=== PATIENT | female | born 1975 | race Caucasian/White ===

== ENCOUNTER 2019-03-18 14:15 | Emergency (ER) | payer OTHER ==
[~2019-03-18] VITALS: Ht 160 cm; Wt 90.9 kg
[2019-03-18 14:16] VITALS: BP 147/88
[2019-03-18] MEDS ORDERED: ADV250INH (14:24)
[2019-03-18] MEDS ORDERED: RIZA10TA2 (14:24)
[2019-03-18] MEDS ORDERED: TOPI25TA10 (14:24)
--- NOTE | 2019-03-18 15:07 | REP ---
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 Technique: AP, lateral, bilateral oblique views left first digit . Findings: The osseous structures and joint spaces are intact and normal. There is no evidence for acute fracture or dislocation. Surrounding soft tissues are unremarkable. No subcutaneous emphysema or radiodense foreign body. Impression: Normal examination. No acute fracture or dislocation. Electronically Signed by Marcos Williamson MD 03/18/2019 02:50 P
== END 2019-03-18 15:12 | disposition home or self-care (01) ==
LOC: M ED 14:15
DX: M79.645 Pain in left finger(s) (principal); M10.9 Gout, unspecified; Z88.0 Allergy status to penicillin; Z88.1 Allergy status to other antibiotic agents; Z88.2 Allergy status to sulfonamides

== ENCOUNTER → 2019-08-12 | Outpatient (REF) | payer OTHER ==
[~2019-08-12] MED LIST: ADV250INH; RIZA10TA2; TOPI25TA10
== END ==
LOC: M LAB REF 10:44
PROVIDERS: ATTEND Physician Assistant
DX: J06.9 Acute upper respiratory infection, unspecified (principal)

== ENCOUNTER 2021-12-03 16:56 | Emergency (ER) | payer OTHER ==
[~2021-12-03] VITALS: Ht 160 cm; Wt 100.0 kg
[2021-12-03] MEDS ORDERED: UBRO50TA (17:06)
[2021-12-03 17:47] LABS: BASO % 0.2 % (0.0-1.0); HEMATOCRIT 39.6 % (36.0-47.0); HEMOGLOBIN 13.2 g/dl (12.0-15.5); LYMPH # 2.8 10^3/uL (1.5-5.0); LYMPH % 28.2 % (24.0-44.0); MEAN CORPUSCULAR HEMOGLOBIN 27.4 pg (27.0-33.0); MEAN CORPUSCULAR HGB CONC 33.3 g/dl (32.0-36.5); MEAN CORPUSCULAR VOLUME 82.2 fl (80.0-96.0); MONO # 0.5 10^3/uL (0.0-0.8); MONO % 5.3 % (2.0-8.0); NEUTROPHILS # 6.5 10^3/uL (1.5-8.5); PLATELET COUNT, AUTOMATED 268 10^3/uL (150-450); RED BLOOD COUNT 4.82 10^6/uL (4.00-5.40); WHITE BLOOD COUNT 9.9 10^3/uL (4.0-10.0)
[2021-12-03 18:16] LABS: ALBUMIN 3.9 GM/DL (3.2-5.2); ALT/SGPT 30 U/L (12-78); BILIRUBIN,DIRECT < 0.1 MG/DL (0.0-0.2); BILIRUBIN,TOTAL 0.2 MG/DL (0.2-1.0); BLOOD UREA NITROGEN 21 MG/DL (7-18); CALCIUM LEVEL 9.2 MG/DL (8.5-10.1); CARBON DIOXIDE LEVEL 27 MEQ/L (21-32); CHLORIDE LEVEL 109 MEQ/L (98-107); CREATININE FOR GFR 0.94 MG/DL (0.55-1.30); GLOMERULAR FILTRATION RATE > 60.0 (>58); GLUCOSE, FASTING 92 MG/DL (70-100); LIPASE 152 U/L (73-393); POTASSIUM SERUM 3.9 MEQ/L (3.5-5.1); SODIUM LEVEL 140 MEQ/L (136-145); TOTAL PROTEIN 7.7 GM/DL (6.4-8.2)
[2021-12-03 18:17] LABS: CK-MB VALUE MASS < 1.0 NG/ML (<3.6); CPK CREATINE PHOSPHOKINASE 133 U/L (26-192); MB/CK RELATIVE INDEX 0.75 (< OR =4)
[2021-12-03] MEDS ORDERED: ASPIRIN 81 MG CHEW TABLET PO ONE (18:50)
[2021-12-03 18:53] LABS: INR 0.97; PROTHROMBIN TIME 13.3 SECONDS (12.7-14.5)
[2021-12-03 21:20] LABS: CK-MB VALUE MASS 1.1 NG/ML (<3.6); MB/CK RELATIVE INDEX 0.91 (< OR =4)
[2021-12-03] MEDS ORDERED: KETOROLAC 30 MG/ML 1ML VIAL IV ONE (22:10)
[2021-12-03 22:16] VITALS: BP 135/78
== END 2021-12-03 23:46 | disposition home or self-care (01) ==
LOC: M ED 16:56
DX: R07.89 Other chest pain (principal); Z88.0 Allergy status to penicillin; Z88.1 Allergy status to other antibiotic agents; Z88.2 Allergy status to sulfonamides
CPT/HCPCS: 71045; 71275; 80048; 80076; 82550; 82553; 83690; 84484; 85025; 85610; 93005; 93041; 94760; 96374; 99285; J1885

== ENCOUNTER → 2022-01-10 | Outpatient (CLI) | payer OTHER ==
[~2022-01-10] MED LIST changes: +UBRO50TA
== END ==
LOC: M WHC 12:55
PROVIDERS: ATTEND Physician Assistant
DX: R92.2 Inconclusive mammogram (principal)

== ENCOUNTER 2022-03-03 22:32 | Emergency (ER) | payer OTHER ==
[~2022-03-03] VITALS: Ht 160 cm; Wt 90.9 kg
[2022-03-04 08:55] VITALS: BP 141/96
== END 2022-03-04 08:56 | disposition home or self-care (01) ==
LOC: M ED 22:32
DX: S29.012A Strain of muscle and tendon of back wall of thorax, initial encounter (principal); S16.1XXA Strain of muscle, fascia and tendon at neck level, initial encounter; V40.6XXA Car passenger injured in collision with pedestrian or animal in traffic accident, initial encounter; Y92.410 Unspecified street and highway as the place of occurrence of the external cause; J45.909 Unspecified asthma, uncomplicated; R51.9 Headache, unspecified; Z79.899 Other long term (current) drug therapy; Z79.51 Long term (current) use of inhaled steroids; Z88.0 Allergy status to penicillin; Z88.1 Allergy status to other antibiotic agents; Z88.2 Allergy status to sulfonamides

== ENCOUNTER → 2023-08-04 | Outpatient (CLI) | payer OTHER | LOC: M WUC 14:34 | PROVIDERS: ATTEND Student in an Organized Health Care Education/Training Program | DX: R06.02 Shortness of breath (principal) ==

== ENCOUNTER 2024-02-19 16:54 | Emergency (ER) | payer OTHER ==
[~2024-02-19] VITALS: Ht 160 cm; Wt 97.0 kg
[2024-02-19] MEDS ORDERED: NAPR-837 PO (21:52)
[2024-02-19 22:02] VITALS: BP 130/85; TEMP 97.5; O2SAT 99
== END 2024-02-19 22:26 | disposition home or self-care (01) ==
LOC: M ED 16:54
DX: M79.605 Pain in left leg (principal); N85.00 Endometrial hyperplasia, unspecified; Z79.899 Other long term (current) drug therapy; Z88.0 Allergy status to penicillin; Z88.2 Allergy status to sulfonamides

== ENCOUNTER → 2024-03-01 | Outpatient (REF) | payer OTHER ==
[~2024-03-01] MED LIST changes: +NAPR-837 PO
== END ==
LOC: M SFHCWAGY 13:21
PROVIDERS: ATTEND Nurse Practitioner Family
DX: Z12.4 Encounter for screening for malignant neoplasm of cervix (principal); Z01.419 Encounter for gynecological examination (general) (routine) without abnormal findings; Z77.9 Other contact with and (suspected) exposures hazardous to health

== ENCOUNTER 2024-04-15 13:37 | Day surgery (SDC) | payer OTHER ==
[~2024-04-15] VITALS: Ht 157.5 cm; Wt 98.2 kg
[~2024-04-15 13:37] MED LIST changes: -ADV250INH; +ADV250INH INH; +CALCTAB89 PO; +D-101000 PO; +IBUP1TAB6 PO; +LEVOTAB10 PO; +MAGN250T7 PO; -TOPI25TA10; +TOPI25TA10 PO; -UBRO50TA; +UBRO50TA PO; +VITA100T59 PO; +ZINC50TA14 PO
[2024-04-15] MEDS ORDERED: LR 1,000 ML IV SCH (13:40)
[2024-04-15] MEDS ORDERED: VITA-243 PO (13:56)
[2024-04-15] MEDS ORDERED: MAGN400C PO (13:56)
[2024-04-15] MEDS ORDERED: propofoL 200 MG/20 ML VIAL As Ordered ONE (14:29)
[2024-04-15] MEDS ORDERED: LIDOCAINE 2% 100MG/5ML SDV (FOR ANES.) As Ordered ONE (14:29)
[2024-04-15] MEDS ORDERED: fentaNYL 100 MCG/2 ML INJECTION As Ordered ONE (14:29)
[2024-04-15] MEDS ORDERED: MIDAZOLAM INJ 2MG/2ML VIAL As Ordered ONE (14:29)
[2024-04-15] MEDS ORDERED: ACETAMINOPHEN 1000MG 100ML IV BAG As Ordered ONE (14:36)
[2024-04-15] MEDS: SILVER NITRATE APPLICATOR (1 = QTY 10) As Ordered ONE (15:40)
[2024-04-15 15:59] LABS: HEMOGLOBIN 12.5 g/dl (12.0-15.5); MEAN CORPUSCULAR HEMOGLOBIN 27.4 pg (27.0-33.0); MEAN CORPUSCULAR HGB CONC 32.9 g/dl (32.0-36.5); MEAN CORPUSCULAR VOLUME 83.3 fl (80.0-96.0); PLATELET COUNT, AUTOMATED 255 10^3/uL (150-450); RED BLOOD COUNT 4.56 10^6/uL (4.00-5.40); WHITE BLOOD COUNT 10.3 10^3/uL (4.0-10.0)
[2024-04-15] MEDS ORDERED: MORPHINE 2 MG/ML 1ML VIAL IV PRN (16:00)
[2024-04-15] MEDS ORDERED: fentaNYL 100 MCG/2 ML INJECTION IV PRN (16:00)
[2024-04-15] MEDS ORDERED: ONDANSETRON 4MG 2ML VIAL IV PRN (16:00)
[2024-04-15] MEDS ORDERED: oxyCODONE 5MG TAB PO PRN (16:00)
[2024-04-15] MEDS: LIDOCAINE 1% SDV 30ML VIAL As Ordered ONE (16:02)
[2024-04-15] MEDS ORDERED: IBUP1TAB7 PO (16:09)
[2024-04-15 16:31] LABS: THYROID STIMULATING HORMONE 1.581 uIU/ML (0.55-4.78)
[2024-04-15 16:32] LABS: ESTRADIOL < 19.0 PG/ML; FOLLICLE STIMULATING HORMONE 85.6 mIU/ML; LUTEINIZING HORMONE 35.7 mIU/ML
[2024-04-15 16:57] VITALS: BP 141/89; TEMP 97.4; O2SAT 98
== END 2024-04-15 17:42 | disposition home or self-care (01) ==
LOC: M SDC 13:37
PROVIDERS: ATTEND Obstetrics & Gynecology
DX: R93.89 Abnormal findings on diagnostic imaging of other specified body structures (principal); J45.909 Unspecified asthma, uncomplicated; G43.909 Migraine, unspecified, not intractable, without status migrainosus; Z79.899 Other long term (current) drug therapy; Z88.0 Allergy status to penicillin; Z88.2 Allergy status to sulfonamides
CPT/HCPCS: 58558; 82670; 83001; 83002; 84443; 85027; 86850; 86900; 86901; 88305; J0131; J2250; J3010

== ENCOUNTER 2024-04-19 19:03 | Emergency (ER) | payer OTHER ==
[~2024-04-19] VITALS: Ht 159.4 cm; Wt 95.3 kg
[~2024-04-19 19:03] MED LIST changes: +IBUP1TAB7 PO; +MAGN400C PO; +VITA-243 PO
[2024-04-19] MEDS: KETOROLAC 30 MG/ML 1ML VIAL IV ONE (21:56)
[2024-04-19] MEDS: ONDANSETRON 4MG 2ML VIAL IV ONE (21:56)
[2024-04-19 22:10] LABS: BASO # 0.1 10^3/uL (0.0-0.2); BASO % 0.4 % (0.0-1.0); EOS # 0.2 10^3/uL (0.0-0.5); HEMATOCRIT 40.4 % (36.0-47.0); HEMOGLOBIN 13.5 g/dl (12.0-15.5); LYMPH # 3.5 10^3/uL (1.5-5.0); LYMPH % 30.8 % (24.0-44.0); MEAN CORPUSCULAR HEMOGLOBIN 27.3 pg (27.0-33.0); MEAN CORPUSCULAR HGB CONC 33.4 g/dl (32.0-36.5); MEAN CORPUSCULAR VOLUME 81.8 fl (80.0-96.0); MONO # 0.6 10^3/uL (0.0-0.8); MONO % 5.5 % (2.0-8.0); NEUTROPHILS % 60.9 % (36.0-66.0); PLATELET COUNT, AUTOMATED 285 10^3/uL (150-450); RED BLOOD COUNT 4.94 10^6/uL (4.00-5.40); WHITE BLOOD COUNT 11.4 10^3/uL (4.0-10.0)
[2024-04-19 22:44] LABS: LIPASE 46 U/L (12-53)
[2024-04-19 22:47] LABS: ALBUMIN 3.9 G/DL (3.2-5.2); ALKALINE PHOSPHATASE 150 U/L (46-116); ALT/SGPT 23 U/L (7.0-40); AST/SGOT 13 U/L (<34); BILIRUBIN,DIRECT 0.1 MG/DL (<0.4); BILIRUBIN,TOTAL 0.4 MG/DL (0.3-1.2); BLOOD UREA NITROGEN 21 MG/DL (9-23); CALCIUM LEVEL 8.9 MG/DL (8.5-10.1); CARBON DIOXIDE LEVEL 24 MMOL/L (20-31); CHLORIDE LEVEL 106 MMOL/L (98-107); CREATININE FOR GFR 0.91 MG/DL (0.55-1.30); GLOMERULAR FILTRATION RATE > 60.0 (>51); GLUCOSE, FASTING 94 MG/DL (60-100); POTASSIUM SERUM 3.8 MMOL/L (3.5-5.1); SODIUM LEVEL 137 MMOL/L (136-145); TOTAL PROTEIN 7.1 G/DL (5.7-8.2)
[2024-04-19] MEDS ORDERED: ISOVUE-370 76% 100ML VIAL As Ordered ONE (23:03)
[2024-04-20] MEDS ORDERED: KETO10TAB PO (00:51)
[2024-04-20] MEDS: KETOROLAC 30 MG/ML 1ML VIAL IV ONE (01:02)
[2024-04-20 01:06] VITALS: BP 147/88; TEMP 97.7; O2SAT 97
== END 2024-04-20 01:31 | disposition home or self-care (01) ==
LOC: M ED 19:03
DX: R10.84 Generalized abdominal pain (principal); K57.30 Diverticulosis of large intestine without perforation or abscess without bleeding; J45.909 Unspecified asthma, uncomplicated; G43.909 Migraine, unspecified, not intractable, without status migrainosus; Z79.899 Other long term (current) drug therapy; Z88.0 Allergy status to penicillin; Z88.2 Allergy status to sulfonamides
CPT/HCPCS: 74177; 80048; 80076; 83690; 85025; 96374; 96375; 96376; 99283; J1885; J2405; Q9967

== ENCOUNTER → 2024-04-25 | Outpatient (CLI) | payer OTHER ==
[~2024-04-25] MED LIST changes: +KETO10TAB PO
[2024-04-25 16:54] LABS: C REACTIVE PROTEIN QUANTITATIV 1.2 MG/DL (<1.0)
[2024-04-25 16:57] LABS: RHEUMATOID FACTOR QUANT 17.5 IU/ML (<14)
[2024-04-27 12:21] LABS: RNP ANTIBODY <1.0 NEG AI (<1.0 NEG); SM ANTIBODY <1.0 NEG AI (<1.0 NEG); SSA SJOGRENS A <1.0 NEG AI (<1.0 NEG); SSB SJOGRENS B <1.0 NEG AI (<1.0 NEG)
[2024-05-03 17:42] LABS: ANTI DS-DNA AB NEGATIVE (NEGATIVE)
== END ==
LOC: M LAB 16:06
PROVIDERS: ATTEND Physician Assistant
DX: M13.0 Polyarthritis, unspecified (principal)

== ENCOUNTER → 2025-01-31 | Outpatient (CLI) | payer OTHER ==
[~2025-01-31] MED LIST changes: -ADV250INH INH; +ADVA1AER9 INH; +COLA100C5 PO; +IBUP80TA PO; +MULTTAB61 PO; +ONDA-282 PO; +PERCOCET PO; +TOPI-256 PO; -TOPI25TA10 PO
== END ==
LOC: M EKG 17:26
PROVIDERS: ATTEND Anesthesiology
DX: Z01.818 Encounter for other preprocedural examination (principal); R94.31 Abnormal electrocardiogram [ECG] [EKG]

== ENCOUNTER 2025-02-04 08:40 | Day surgery (SDC) | payer OTHER ==
[~2025-02-04] VITALS: Ht 160 cm; Wt 100.6 kg
[~2025-02-04 08:40] MED LIST changes: -COLA100C5 PO; -IBUP80TA PO; -ONDA-282 PO; -PERCOCET PO
[2025-02-04] MEDS ORDERED: LR 1,000 ML IV SCH ×3 (08:45→12:05)
[2025-02-04 09:25] LABS: HEMATOCRIT 39.6 % (36.0-47.0); HEMOGLOBIN 13.2 g/dl (12.0-15.5); MEAN CORPUSCULAR HGB CONC 33.3 g/dl (32.0-36.5); MEAN CORPUSCULAR VOLUME 83.9 fl (80.0-96.0); PLATELET COUNT, AUTOMATED 246 10^3/uL (150-450); RED BLOOD COUNT 4.72 10^6/uL (4.00-5.40); WHITE BLOOD COUNT 8.3 10^3/uL (4.0-10.0)
[2025-02-04] MEDS ORDERED: ROCURONIUM BROMIDE 50MG/5ML VIAL As Ordered ONE (10:06)
[2025-02-04] MEDS ORDERED: MIDAZOLAM INJ 2MG/2ML VIAL As Ordered ONE (10:06)
[2025-02-04] MEDS ORDERED: propofoL 200 MG/20 ML VIAL As Ordered ONE (10:06)
[2025-02-04] MEDS ORDERED: LIDOCAINE 2% 100MG/5ML SDV (FOR ANES.) As Ordered ONE (10:06)
[2025-02-04] MEDS ORDERED: fentaNYL 100 MCG/2 ML INJECTION As Ordered ONE (10:06)
[2025-02-04] MEDS ORDERED: ACETAMINOPHEN 1000MG/100ML IV BAG As Ordered ONE (10:09)
[2025-02-04] MEDS ORDERED: ONDANSETRON 4MG 2ML VIAL As Ordered ONE (10:09)
[2025-02-04] MEDS: ceFAZolin SOD 2 GM IV ONCE IV ONE (10:30)
[2025-02-04] MEDS ORDERED: SUGAMMADEX SODIUM 500 MG/5 ML VIAL As Ordered ONE (10:34)
[2025-02-04] MEDS ORDERED: HYDROmorphone HCL 2MG/ML 1ML VIAL As Ordered ONE (10:39)
[2025-02-04] MEDS: METHYLENE BLUE 0.5% (5MG/ML) 10 ML AMP As Ordered ONE (11:10)
[2025-02-04] MEDS ORDERED: KETOROLAC 30 MG/ML 1ML VIAL As Ordered ONE (11:44)
[2025-02-04] MEDS ORDERED: fentaNYL 100 MCG/2 ML INJECTION IV PRN (11:50)
[2025-02-04] MEDS ORDERED: MORPHINE 4 MG/ML 1ML VIAL IV PRN (12:05)
[2025-02-04] MEDS ORDERED: PERCOCET 5MG/325MG TAB PO PRN ×2 (12:05)
[2025-02-04] MEDS ORDERED: COLA100C5 PO (12:16)
[2025-02-04] MEDS ORDERED: IBUP80TA PO (12:16)
[2025-02-04] MEDS ORDERED: PERCOCET PO (12:16)
[2025-02-04] MEDS ORDERED: ONDA-282 PO (12:20)
[2025-02-04] MEDS: HYDROMORPHONE HCL 0.5 MG/ 0.5 ML SYRINGE IV PRN (12:39)
[2025-02-04] MEDS: ONDANSETRON 4MG 2ML VIAL IV PRN (12:53)
[2025-02-04] MEDS: oxyCODONE 5MG TAB PO PRN (12:53)
[2025-02-04] MEDS: METOCLOPRAMIDE INJ 10MG/2ML VIAL IV PRN (13:31)
[2025-02-04 14:48] VITALS: BP 157/93; TEMP 97.5; O2SAT 97
[2025-02-04 15:18] VITALS: BP 137/89; TEMP 97.3; O2SAT 97
[2025-02-04] MEDS ORDERED: KETOROLAC 30 MG/ML 1ML VIAL IV SCH (18:00)
[2025-02-04] MEDS ORDERED: DOCUSATE SODIUM 100MG CAPSULE PO SCH (21:00)
[2025-02-05] MEDS ORDERED: IBUPROFEN 800 MG TAB PO SCH (14:00)
== END 2025-02-04 16:45 | disposition home or self-care (01) ==
LOC: M SDC 08:40 → M PED 14:46 → M SDC 16:45
PROVIDERS: ATTEND Obstetrics & Gynecology
DX: D25.9 Leiomyoma of uterus, unspecified (principal); R10.2 Pelvic and perineal pain; J45.909 Unspecified asthma, uncomplicated; G43.909 Migraine, unspecified, not intractable, without status migrainosus; Z79.899 Other long term (current) drug therapy; Z88.0 Allergy status to penicillin; Z88.2 Allergy status to sulfonamides; Z85.828 Personal history of other malignant neoplasm of skin
CPT/HCPCS: 36415; 58571; 81025; 85027; 86850; 86900; 86901; 88307; J0131; J0665; J0690; J1100; J1171; J1885; J2250; J2405; J2765; J3010; Q9968; S2900

== ENCOUNTER → 2025-05-02 | Outpatient (CLI) | payer OTHER ==
[~2025-05-02] MED LIST changes: +COLA100C5 PO; +IBUP80TA PO; +ONDA-282 PO; +PERCOCET PO
[2025-05-02 14:09] LABS: PLATELET COUNT, AUTOMATED 250 10^3/uL (150-450)
[2025-05-02 14:42] LABS: ALT/SGPT 22.0 U/L (7.0-40); AST/SGOT 23.0 U/L (<34); CALCIUM LEVEL 9.1 MG/DL (8.5-10.1); CARBON DIOXIDE LEVEL 25.0 MMOL/L (20-31); CHLORIDE LEVEL 109.0 MMOL/L (98-107); CHOLESTEROL LEVEL 186.0 MG/DL (<200); CHOLESTEROL RISK RATIO 4.08 (<5); CREATININE FOR GFR 1.03 MG/DL (0.55-1.30); GLOMERULAR FILTRATION RATE 65.4 (>51); LDL CHOLESTEROL 113.9 MG/DL (<100); NON-HDL-C 140.5 MG/DL; POTASSIUM SERUM 4.2 MMOL/L (3.5-5.1); SODIUM LEVEL 144.0 MMOL/L (136-145); TRIGLYCERIDES LEVEL 133.0 MG/DL (<150)
== END ==
LOC: M LAB 12:58
PROVIDERS: ATTEND Physician Assistant
DX: E78.2 Mixed hyperlipidemia (principal)